=== PATIENT | female | born 1970 | race Hispanic/Latino ===

== ENCOUNTER 2021-04-01 08:14 | Day surgery (SDC) | payer OTHER ==
[2021-04-01 08:59] LABS: Specific Gravity 1.015 (1.005-1.030)
[2021-04-01] MEDS ORDERED: CEFAZOLIN/SWI 2gm 2 GM/20 ML SYR ONE (09:09)
[2021-04-01] MEDS ORDERED: Ringers Lactate 1,000 ML IV ONE (09:09)
[2021-04-01] MEDS ORDERED: propofoL 200 MG/20 ML VIAL IV ONE (09:43)
[2021-04-01] MEDS ORDERED: FENTANYL CITR 100 MCG/2 ML ONE (09:43)
[2021-04-01] MEDS ORDERED: LIDOCAINE 2% MPF 5 ML VIAL ONE (09:43)
[2021-04-01] MEDS ORDERED: MIDAZOLAM HCL 2 MG/2 ML INJ ONE (09:44)
[2021-04-01] MEDS ORDERED: ONDANSETRON 4 MG/2 ML VIAL ONE (09:45)
[2021-04-01] MEDS ORDERED: LIDOCAINE 1% W/EPI 1:100,000 MDV 20 ML VIAL ONE (11:09)
[2021-04-01] MEDS ORDERED: NA CHLORIDE 0.9% 100 ML IV ONE (11:09)
[2021-04-01] MEDS ORDERED: VASOPRESSIN 20 UNIT/ML VIAL ONE ×2 (11:11→11:25)
[2021-04-01] MEDS ORDERED: miSOPROStoL 100 MCG TAB ONE (11:15)
--- NOTE | 2021-04-01 11:46 | P.BOP ---
Preoperative diagnosis: AUB-L, Dysmenorrhea, RLQ pain Postoperative diagnosis: same, cervical prolapsing leiomyoma Primary procedure: cervical myomectomy, hysteroscopy d/c Secondary procedure: placement of a 30ml main to tamponade uterine bleeding Vice President Of Procurement: NONE,NONE Estimated blood loss: 50 Specimen: cervical myoma, emc Findings: 4cm myoma, intracavitary leiomyoma and polyps Anesthesia: General Complications: None Drain(s): Other (main placed in the uterus to tamponade) Implants: none Transferred to: Recovery Room Condition: Good
[2021-04-01] MEDS: HYDROMORPHONE HCL 1 MG/ML INJ ONE ×2 (11:54→12:41)
[2021-04-01] MEDS ORDERED: MEPERIDINE HCL 25 MG/ML SYR ONE (15:57)
[2021-04-01 16:34] VITALS: BP 106/63; TEMP 98.2; O2SAT 96
--- NOTE | 2021-04-01 22:41 | OP ---
Date of Procedure: 04/01/2021 Surgeon: Zelda Carvajal MD Preoperative Diagnoses: Menorrhagia, right lower quadrant pain, dysmenorrhea, leiomyomata, prolapsin g cervical myoma. Postoperative Diagnoses: Menorrhagia, right lower quadrant pain, dysmenorrhea, leiomyomata, prolapsi ng cervical myoma. Procedures Performed: Diagnostic hysteroscopy, D and C, cervical myomectomy and packing of the uteru s for tamponading the bleeding with 30 cc Lopez balloon. Anesthesia: General with LMA. Specimens: Endometrial curettings and myoma. Estimated Blood Loss: 50. Complications: None. Drains: None. Condition: Stable. Findings: Large cervical myoma prolapsing out of the uterus. The base of it was cut from the top of the cervix prolapsing out at the cervical canal. The cervical canal was about dilated 3 cm, very ef faced and thin. Superiorly in the uterine cavity, there was another large myoma encompassing the ent rachelle uterine cavity. There are also 2 polyps in the endometrial canal and good sample was obtained fr om these. The myoma was sent for permanent pathology. The patient's condition stable at this time and bleeding stabilized after placing the balloon. Description Of Procedure: After informed consent was verified, the patient was taken back to OR, [facility] in a supine fashion on the operating table. General anesthesia was given. Placed in a dorsal li thotomy position. Vulva, vagina and perineum prepped and draped in a sterile fashion. Speculum was placed to expose the cervix. Anterior lip was effaced and thin and dilated with the cervical myoma p rolapsed and presenting as the leading lesion. A single-tooth tenaculum was placed on the myoma and the Allis clamps were placed all around the ante rior lip of the cervix. Then taking curved Mas scissors, the base of the myoma from the cervix was cut and and removed and handed out for permanent pathology. Vasopressin 10 units mixed in 20 cc of normal saline was injected, 10 cc at the 3 o'clock and 10 cc at 9 o'clock positions without any problems. Bleeding still continues to be slightly brisk. The cervical canal not fully exposed i n the top portion. On diagnostic hysteroscopy with a SlimLine hysteroscope, the uterine cavity was v isualized. Smooth leiomyoma present and 2 polyps on the top on the right side. The scope was remove d. Endometrial curettings were performed in this area, handed out for permanent pathology. Then, on observing the bleeding, it was a bright blood red steady ooze that was ongoing, packed with 4 x 4s f or 3 minutes. There was excellent hemostasis while it stayed packed, but when the pack was removed, then there was recurrent bleeding. So at this time, decided to place Lopez balloon 30 cc into the ut erine cavity. Then, the balloon was inflated to 30 cc with excellent tamponade, very little bright r ed blood oozing up, after watching it for another 3 minutes, recovered the patient. Instrument, need le and sponge counts were correct at the end of the case. The patient tolerated the procedure well. An 800 mcg of misoprostol was inserted into the rectum for hemostasis. The patient was recovered fr om anesthesia and taken to PACU in stable condition. Plan is to re-observe for at least another 2-4 hours to make sure that the bleeding is better and if the patient is able to tolerate the balloon, we will discharge her for 24 hours with the balloon. We will remove the balloon if the bleeding is not brisk. Alternatively, if she bleeds again, then put a vaginal pack rolled into the uterus and then discharge her. If the bleeding does not stop, hysterectomy. MIRYAM/ZIGGY Voice ID: [id number] Report ID: [id number]
== END 2021-04-01 16:50 | disposition home or self-care (01) ==
LOC: OR 08:14
PROVIDERS: ATTEND Obstetrics & Gynecology
PROC: 0UJD8ZZ Inspection of Uterus and Cervix, Via Natural or Artificial Opening Endoscopic (ICD-10-PCS; 2021-04-01)
PROC: 0UB98ZZ Excision of Uterus, Via Natural or Artificial Opening Endoscopic (ICD-10-PCS; 2021-04-01)
PROC: 0UDB7ZX Extraction of Endometrium, Via Natural or Artificial Opening, Diagnostic (ICD-10-PCS; principal; 2021-04-01 09:30)
DX: N71.1 Chronic inflammatory disease of uterus (principal); D25.9 Leiomyoma of uterus, unspecified; N94.6 Dysmenorrhea, unspecified; D50.9 Iron deficiency anemia, unspecified; R10.31 Right lower quadrant pain; Z20.822 Contact with and (suspected) exposure to COVID-19
CPT/HCPCS: 81025; 88305; 58558; 58561; U0003; J2704; J2250; J3010; J2175; J1170; J0690; J7120; J2405

== ENCOUNTER 2021-05-20 09:50 | Day surgery (SDC) | payer OTHER ==
[2021-05-07 14:13] LABS: Absolute Lymphocytes (CBC) 1.5 K/uL (0.7-4.9); Basophils % 0.9 % (0-1.3); Hematocrit 32.5 % (36.0-45.0); Lymphocytes % 17.4 % (15.3-44.8); MPV 8.2 fL (7.6-11.3); RBC Red Blood Cell Count 5.34 M/uL (3.86-4.86)
[2021-05-07 14:41] LABS: Anisocytosis 1+; Blood Morphology Comment NOTED (NOT SEEN); Hypochromasia 2+; Platelet Estimate ADEQ; White Blood Cell Scan OK (OK)
[2021-05-19 15:15] LABS: Absolute Lymphocytes (CBC) 2.1 K/uL (0.7-4.9); Basophils % 0.7 % (0-1.3); Hematocrit 33.4 % (36.0-45.0); Lymphocytes % 20.5 % (15.3-44.8); MPV 8.5 fL (7.6-11.3)
[2021-05-19 15:22] LABS: Specific Gravity 1.025 (1.005-1.030); Urine Appearance CLOUDY (Clear); Urine Bilirubin NEGATIVE (Negative); Urine Blood TRACE (Negative); Urine Color YELLOW (Yellow); Urine Glucose NEGATIVE (Negative); Urine Protein TRACE (Negative); Urine Specific Gravity 1.025 (1.005-1.030); Urine Urobilinogen 0.2 mg/dL (0.2-1.0)
[2021-05-19 15:33] LABS: Urine Microscopic Reflex ORDER UMIC
[2021-05-19 16:07] LABS: Urine Bacteria >50 /HPF (<20); Urine Mucus HEAVY /HPF (NONE SEEN); Urine RBC <5 /HPF (NONE SEEN)
[2021-05-19 18:35] LABS: Anisocytosis 3+; Blood Morphology Comment NOTED (NOT SEEN); Platelet Estimate ADEQ; Polychromasia 1+; White Blood Cell Scan OK (OK)
[2021-05-20] MEDS ORDERED: SCOPOLAMINE HYDROBROMIDE PATCH TD ONE ×2 (10:20→10:22)
[2021-05-20] MEDS ORDERED: Ringers Lactate 1,000 ML IV ONE ×3 (10:22→20:00)
[2021-05-20] MEDS: CEFAZOLIN 3 GM in NA CHLORIDE 0.9% 100 ML IVPB ONE ×2 (13:07→13:25)
[2021-05-20] MEDS: BUPIVACAINE 0.25% PF 30 ML VIAL ONE ×2 (13:07→13:41)
[2021-05-20] MEDS ORDERED: KETAMINE HCL 500 MG/5 ML VIAL ONE (13:09)
[2021-05-20] MEDS ORDERED: ONDANSETRON 4 MG/2 ML VIAL ONE (13:10)
[2021-05-20] MEDS ORDERED: ROCURONIUM 50 MG/5 ML VIAL IV ONE (13:10)
[2021-05-20] MEDS ORDERED: LIDOCAINE 2% MPF 5 ML VIAL ONE (13:10)
[2021-05-20] MEDS ORDERED: NS 0.9% VIAL 10 ML ONE (13:10)
[2021-05-20] MEDS ORDERED: propofoL 200 MG/20 ML VIAL IV ONE (13:10)
[2021-05-20] MEDS ORDERED: FENTANYL CITR 250 MCG/5 ML ONE (13:10)
[2021-05-20] MEDS ORDERED: dexAMETHasone 10 MG/ML VIAL ONE (13:10)
[2021-05-20] MEDS ORDERED: MIDAZOLAM HCL 2 MG/2 ML INJ ONE (13:10)
[2021-05-20] MEDS: Ringers Lactate 1,000 ML IV ONE ×2 (13:54→13:57)
[2021-05-20] MEDS ORDERED: KETOROLAC 30 MG/ML INJ ONE (16:06)
[2021-05-20] MEDS ORDERED: HYDROCODONE/APAP 5/325 MG TAB PO PRN (16:10)
[2021-05-20] MEDS ORDERED: MEPERIDINE HCL 25 MG/ML SYR IM PRN (16:10)
[2021-05-20] MEDS ORDERED: PROMETHAZINE INJ 25 MG/ML AMP IV PRN (16:10)
[2021-05-20] MEDS ORDERED: IBUPROFEN 200 MG TAB PO PRN (16:10)
[2021-05-20] MEDS ORDERED: GLYCOPYRROLATE 0.2 MG/ML SYR ONE (16:14)
[2021-05-20] MEDS ORDERED: NEOSTIGMINE 1 MG/ML -5 ML ONE (16:14)
--- NOTE | 2021-05-20 16:26 | P.BOP ---
Preoperative diagnosis: Menoarrhagia, RLQ pain Postoperative diagnosis: AUB-L, mild salpingitis, same Primary procedure: TLH BS, vag morcellation, lysis of bladder adhesions Cane Loader: ANTHONY ANAND Estimated blood loss: 50, UO 250 Specimen: uterus tubes Findings: mild bilat salpingitis coils, bladder adhesions, ovaries normal, no endo Anesthesia: General Complications: None Transferred to: Recovery Room Condition: Good
[2021-05-20] MEDS ORDERED: HYDROCODONE/APAP 5/325 MG TAB ONE (19:30)
[2021-05-20 20:03] VITALS: BP 136/74; TEMP 97.6; O2SAT 100
--- NOTE | 2021-05-20 21:01 | OP ---
Date of Procedure: 05/20/2021 Surgeon: Zelda Carvajal MD Hvac Design Engineer: Kristen Ott. Preoperative Diagnoses: Menorrhagia, right lower quadrant pain. Postoperative Diagnoses: Menorrhagia, right lower quadrant pain (AUB-L), mild salpingitis with hydro salpinges, Essure coils in the tubes, bladder adhesions. Procedures Performed: Total laparoscopic hysterectomy, bilateral salpingectomy, vaginal morcellation due to the size of the specimens, lysis of bladder adhesions. Anesthesia: General endotracheal. Estimated Blood Loss: 50. Urine Output: 300. Specimens: Uterus and tubes. Complications: No complications. Drains: No drains. Condition: Stable. Findings: Mild bilateral chronic salpingitis. The coils in the tubes much more obvious on the right then on the left, appears to have distal tubal inflammation from likely mild perforation. Ovaries were completely normal. No evidence of any endometriosis. Bladder adhesions due to the cesa rean section were seen. Procedure In Detail: After informed consent was verified, the patient was taken back to the OR, plac ed in supine fashion on the operating table. 3 g of Ancef were given. SCDs were placed. She was gi masood general anesthesia and placed in a dorsal lithotomy position. Arms were tucked by the side, posi tioning checked. SCDs were started. Abdomen, vulva, vagina, and perineum were prepped and draped in a sterile fashion. After appropriate time-out was done, case was started with placement of Lopez to drain the bladder an d attached with tubing for retrograde filling. A large VCare was introduced into the uterus and fixe d in place. This area was then draped. An infraumbilical 1 cm incision was made with a scalpel using open laparoscopy technique. Fascia was incised, tagged with 0 Vicryl sutures. Peritoneum entered sharply. S-retractors were placed. Jake on introduced. Site of entry was checked and was unremarkable. After adequate insufflation, the pat ient was placed in Trendelenburg and 5 left lower quadrant and 10 suprapubic ports were placed after visualizing the anatomy and the need for another port. A left upper quadrant port was placed in the midaxillary line. Both ureters had no distortion in the anatomical location. There were bladder adhesions. Bowel was free. Ovaries were unremarkable and no evidence of any endometriosis. Tubes as described in the fin dings. Distal fallopian tube on the left side was picked up. Mesosalpinx was taken down to detach tube from the sidewall. Window was made cephalad to the round ligament and caudal in the anterior peritoneum. Then, utero-ovarian ligament and round ligament were all taken down the pedicle to keep the ovary a ttached to the sidewall. anteriorly was taken down and dissected into the prevesical space by push-spread technique and carefully incising the peritoneum. Then, broad ligament was cleaned up . Posterior peritoneum taken down to the left uterosacral and the vessels were identified and isolat ed. The ureter was identified laterally without any problems. Then, vessels were taken down with th e help of the LigaSure and the bipolar. Bladder was dissected inferiorly all around the cuff. Anter ior peritoneum taken down all the way to the right round ligament and dissection performed on the rig ht side taking down the fallopian tube from the fimbriated end all the way to the proximal part. The n, utero-ovarian ligament was taken down separately and round ligament taken down separately. The po sterior peritoneum was then dissected all the way to the uterosacral ligament, taken down, and vessel s were skeletonized as on the opposite side and slightly lateral and posterior to the sides of the fi broid and the distortions. Vesicovaginal space was entered with a monopolar hook blade and bladder d issected inferiorly. Then, vessels were taken down on the right side as well on the left side. Card inal ligaments were taken down and monopolar hook blade was used to perform a colpotomy. The cervix was held through the vagina and attempt was made to retrieve the specimen, but this was di fficult as it was large. Vaginal morcellation was performed with a Mccray speculum was morcellated and removed. This took at least 40 minutes of the case as the fibroids were significantly dense and given the obesity of the patient and difficulty accessing the vaginal canal and getting exposure to safely morcellate t he specimen. Once the specimen was completely removed, the vagina was packed with a sponge on a glov e for pneumo occlusion and this area was draped. Gloves and gowns were changed. Thorough irrigation and suction were performed on the vaginal cuff, cautered with the help of bipolar fine tip. Once there was excellent hemostasis, the cuff was closed at both angles with 2-0 Vicryl s utures that were simple and 3 [id number] in the center for excellent closure using the connecti ve tissue uterosacrals were still attached to the vaginal apex of the vaginal cuff. They were not attached. Once the closure was done, irrigation and suction performed with excellent hemostasis. Both ureters had no electrical, mechanical, or thermal injury and bladder appeared to be completely unremarkable a s well. Gas was desufflated. Trocars were removed under direct vision. Demetrius was removed. All th e port sites of the fascia and skin were injected with 0.25% Marcaine at the beginning and at the end of the case. Fascia at the umbilicus was closed with the help of 0 Vicryl sutures, tied to each oth er and simple 0 Vicryl stitch at the suprapubic site, and all skin incisions were closed with the hel p of interrupted 4-0 Vicryl sutures. Lopez and vaginal packing were removed. Instrument, needle, an d sponge counts were correct at the end of the case. The patient tolerated the procedure well. She was recovered from anesthesia and taken to the PACU in stable condition. The patient had asymptomati c bacteriuria and she will continue on her Levaquin 750 daily as she is perioperative with having a c atheterization that was done during the case. The patient was completely asymptomatic from her urinary standpoint and she has been counseled about all the symptoms of bladder infection. MIRYAM/ZIGGY Voice ID: [id number] Report ID: [id number]
[2021-05-21] MEDS ORDERED: FERROUS SULFATE 325 MG TAB PO SCH (09:00)
== END 2021-05-20 20:15 | disposition home or self-care (01) ==
LOC: PRE 09:50 → OR 20:15
PROVIDERS: ATTEND Obstetrics & Gynecology
PROC: 0UT74ZZ Resection of Bilateral Fallopian Tubes, Percutaneous Endoscopic Approach (ICD-10-PCS; 2021-05-20)
PROC: 0UT94ZZ Resection of Uterus, Percutaneous Endoscopic Approach (ICD-10-PCS; principal; 2021-05-20 12:00)
DX: N70.11 Chronic salpingitis (principal); N92.0 Excessive and frequent menstruation with regular cycle; D25.9 Leiomyoma of uterus, unspecified; N94.6 Dysmenorrhea, unspecified; N92.1 Excessive and frequent menstruation with irregular cycle; R10.31 Right lower quadrant pain; D50.9 Iron deficiency anemia, unspecified; Z20.822 Contact with and (suspected) exposure to COVID-19
CPT/HCPCS: 58571; 87088; 85025 ×2; 87086; 36415 ×2; 86900; 86850; 81025; 86901; U0003; J2704; J2250; J3010; J1100; J2710; J7120 ×4; J2405; J0690; 81003; 81015; 88307